=== PATIENT | male | born 1995 | race Caucasian/White ===

== ENCOUNTER 2017-08-19 14:49 | Emergency (ER) | payer MEDICAID ==
[~2017-08-19] VITALS: Ht 177.8 cm; Wt 73.1 kg
[~2017-08-19 14:49] MED LIST: INSU100C SQ-INSULIN; ONDA4TAB10 PO; TAMS-11 PO; TRAM50TA2 PO
[2017-08-19] MEDS ORDERED: HYDROcodone/APAP 5/325 TABLET ONE (17:11)
[2017-08-19] MEDS ORDERED: HYDROcodone/APAP 5/325 TABLET PO ONE (17:30)
[2017-08-19 18:07] VITALS: BP 113/73
== END 2017-08-19 18:10 | disposition home or self-care (01) ==
LOC: ED 18:04
DX: S92.335A Nondisplaced fracture of third metatarsal bone, left foot, initial encounter for closed fracture (principal); X50.1XXA Overexertion from prolonged static or awkward postures, initial encounter; Y93.89 Activity, other specified; Y92.89 Other specified places as the place of occurrence of the external cause; Y99.9 Unspecified external cause status
CPT/HCPCS: 29515; 99284

== ENCOUNTER 2018-02-28 21:01 | Emergency (ER) | payer MEDICAID ==
[~2018-02-28] VITALS: Ht 177.8 cm; Wt 72.3 kg
[2018-02-28 21:04] VITALS: BP 129/76
== END 2018-02-28 22:01 | disposition home or self-care (01) ==
LOC: ED 21:40
DX: E10.9 Type 1 diabetes mellitus without complications (principal); Z79.4 Long term (current) use of insulin; Z76.0 Encounter for issue of repeat prescription
CPT/HCPCS: 99283

== ENCOUNTER 2018-09-13 17:39 | Emergency (ER) | payer MEDICAID ==
[~2018-09-13] VITALS: Ht 177.8 cm; Wt 73.0 kg
[2018-09-13 17:54] VITALS: BP 128/75
[2018-09-13] MEDS ORDERED: OXYcodone/APAP 10/325MG TABLET ONE (19:39)
[2018-09-13] MEDS ORDERED: OXYcodone/APAP 10/325MG TABLET PO ONE (20:00)
== END 2018-09-13 20:29 | disposition home or self-care (01) ==
LOC: ED 20:23
DX: K08.89 Other specified disorders of teeth and supporting structures (principal); E11.9 Type 2 diabetes mellitus without complications
CPT/HCPCS: 99282

== ENCOUNTER 2018-10-16 21:02 | Emergency (ER) | payer MEDICAID ==
[~2018-10-16] VITALS: Ht 177.8 cm; Wt 73.7 kg
[2018-10-16 21:07] VITALS: BP 124/81
[2018-10-16] MEDS ORDERED: AMOXICILLIN 500 MG CAPSULE PO ONE (21:24)
[2018-10-16] MEDS ORDERED: KETOROLAC 30 MG/1 ML IM ONE (21:30)
[2018-10-16] MEDS ORDERED: HYDROcodone/APAP 5/325 TABLET PO ONE (21:30)
[2018-10-16] MEDS ORDERED: HYDROcodone/APAP 5/325 TABLET ONE (21:33)
[2018-10-16] MEDS ORDERED: KETOROLAC 30 MG/1 ML ONE (21:34)
--- NOTE | 2018-10-16 21:42 | NUR ---
pt medicated per mar for pain. pt states he's afraid of injections, and pt refuses toradol IM. ERP aware.
--- NOTE | 2018-10-16 21:53 | NUR ---
pt d/c with d/c summary and scripts. all questions answered pt denies any other needs pertaining to this visit.
== END 2018-10-16 21:55 | disposition home or self-care (01) ==
LOC: ED 21:44
DX: K08.89 Other specified disorders of teeth and supporting structures (principal); E11.9 Type 2 diabetes mellitus without complications; F17.200 Nicotine dependence, unspecified, uncomplicated
CPT/HCPCS: 99283

== ENCOUNTER 2018-10-25 22:02 | Emergency (ER) | payer MEDICAID ==
[~2018-10-25] VITALS: Ht 177.8 cm; Wt 71.6 kg
--- NOTE | 2018-10-25 22:14 | NUR ---
Katia howe in ED - 10/25/[address] at [address] NEUMANN AT BEDSIDE EVALUATING PT
--- NOTE | 2018-10-25 22:38 | NUR ---
DR. BOCANEGRA AT BEDSIDE EVALUATING PT
--- NOTE | 2018-10-25 22:54 | NUR ---
IV ESTABLISHED, LABS DRAWN
[2018-10-25] MEDS ORDERED: CHLORDIAZEPOXIDE 25 MG CAPSULE PO ONE (23:00)
--- NOTE | 2018-10-25 23:04 | NUR ---
FSBS 68
[2018-10-25 23:10] LABS: BASOPHILS # (AUTO) 0.02 x10^3/uL (0-0.1); BASOPHILS % (AUTO) 0 % (0-1); EOSINOPHILS # (AUTO) 0.09 x10^3/uL (0-0.4); EOSINOPHILS % (AUTO) 1 % (1-7); LYMPHOCYTES # (AUTO) 1.49 x10^3/uL (1-3.4); LYMPHOCYTES % (AUTO) 13 % (22-44); MD NO; MEAN CORPUSCULAR HEMOGLOBIN 29.8 pg (27.5-34.5); MEAN CORPUSCULAR HGB CONC 33.5 g/dL (33.2-36.2); MEAN CORPUSCULAR VOLUME 88.9 fL (81-97); MEAN PLATELET VOLUME 8.8 fL (7.4-10.4); MONOCYTES # (AUTO) 0.65 x10^3/uL (0.2-0.8); MONOCYTES % (AUTO) 6 % (2-9); NEUTROPHILS # (AUTO) 9.24 x10^3/uL (1.8-6.8); NEUTROPHILS % (AUTO) 80 % (42-75); PLATELET COUNT 256 x10^3/uL (130-400); RED BLOOD COUNT 5.14 x10^6/uL (4.38-5.82); RED CELL DISTRIBUTION WIDTH 13.8 % (9.4-14.8)
--- NOTE | 2018-10-25 23:20 | NUR ---
PT PROVIDED WITH CANDACE CRACKERS, PEANUT BUTTER, MULTIPLE JUICES. DENIES ANY COMPLAINTS. ALERT AND ORIENTED. AMBULATORY TO RESTROOM TO OBTAIN UA. BACK TO BED WITHOUT DIFFICULTY. UA SENT TO LAB
[2018-10-25 23:21] LABS: ALANINE AMINOTRANSFERASE 29 U/L (12-78); ALBUMIN 4.3 g/dL (3.4-5.0); ANION GAP 5 mmol/L (5-15); CALCIUM 9.6 mg/dL (8.5-10.1); CHLORIDE 108 mmol/L (98-107)
[2018-10-25 23:23] LABS: ALKALINE PHOSPHATASE 80 U/L (45-117); BILIRUBIN,TOTAL 0.2 mg/dL (0.2-1.0); CREATININE 0.92 mg/dL (0.7-1.3); TOTAL PROTEIN 7.6 g/dL (6.4-8.2)
[2018-10-25 23:33] LABS: CULTURE INDICATED? NO; MICROSCOPIC AUTO
[2018-10-25 23:36] VITALS: BP 114/72
[2018-10-25 23:45] LABS: ACETONE, SERUM Negative (Negative)
--- NOTE | 2018-10-26 00:05 | NUR ---
FSBS 77, PT HAS ONLY DRANK 2 JUICES OUT OF FOOD PROVIDED. PT INSTRUCTED TO EAT THE CRACKERS AND PEANUT BUTTER PROVIDED. WILL GET MEAL WHEN [facility] RE OPENS Addendum: 10/26/18 at 0049 by LINDSAY PT SLEEPING ON JAVIER WHEN THIS RN ENTERED ROOM.
--- NOTE | 2018-10-26 00:26 | NUR ---
PT CALLED THIS RN TO ROOM, STATES "I'M GETTING LOW AGAIN". PT STILL HAS NOT EATEN SNACKS PROVIDED. PT EDUCATED ON THE NEED TO EAT IN ORDER TO RAISE HIS BLOOD SUGAR. PT RESPONDS "JUST GIVE ME SOMETHING IN THE IV TO GET MY LEVELS HIGH AGAIN, I CAN EAT THIS SHIT AT HOME". DR. BOCANEGRA AWARE.
--- NOTE | 2018-10-26 00:48 | NUR ---
PT AGAIN REQUESTING TO SPEAK TO PHYSICIAN, STATING "I DON'T WANT TO BE HERE"
[2018-10-26] MEDS ORDERED: DEXTROSE 5% 500 ML IV SCH (01:00)
--- NOTE | 2018-10-26 01:10 | NUR ---
DR. BOCANEGRA SPOKE TO PT, EXPLAINING THE REASONS FOR TREATMENT AND THE STEPS. ALSO PT'S NONCOMPLAINCE WHILE IN THE ER. THE PT STATES HE WANTS TO LEAVE "YALL AREN'T DOING ANYTHING FOR ME, I CAN GO HOME AND DO THIS". PT STILL HAS INSULIN PUMP ON AFTER BEING INSTRUCTED TO TURN IT OFF BY DR. BOCANEGRA SEVERAL TIMES. THE RISKS OF REFUSING TREATMENT DISCUSSED WITH THE PATIENT BY THIS RN AND DR. BOCANEGRA, TO INCLUDE . PT ACKNOWLEDGES THESE RISKS. AMA FORM SIGNED BY THE PT. WITNESSED BY THIS RN.
== END 2018-10-26 01:15 | disposition left against medical advice (07) ==
LOC: ED 22:30
DX: E10.649 Type 1 diabetes mellitus with hypoglycemia without coma (principal); Z79.4 Long term (current) use of insulin
CPT/HCPCS: 36415; 71045; 80053; 81001; 82010; 85025; 99284